=== PATIENT | female | born 2000 | race Caucasian/White ===

== ENCOUNTER 2019-05-14 20:06 | Emergency (ER) | payer BC ==
[~2019-05-14] VITALS: Ht 154.9 cm; Wt 49.9 kg
[2019-05-14] MEDS ORDERED: NKM (20:24)
--- NOTE | 2019-05-14 20:25 | NUR ---
ED Nurse Note: Pt walked in c/o foreign body object in throat, pt states she ate chicken for dinner and thinks there is chicken bone stuck in her throat, pt states it feels like it is going up from her chest to her throat. no visible object found, pt airway intact, able to speak in complete sentences, no sx resp distress, will cont monitor.
[2019-05-14] MEDS ORDERED: Metoclopramide 10mg/2ml Inj IVP ONE (20:30)
--- NOTE | 2019-05-14 20:56 | NUR ---
ED Nurse Note: PT BACK FROM CT AND RESTING, MOTHER AT THE BEDSIDE, PT REFUSED BLOOD WORK, IV FLUID AND MEDICATION, PT STATES SHE WANTS TO WAIT FOR CT RESULT, PT VERBALIZED UNDERSTANDING OF POSSIBLE DELAY OF PT'S HEALTHCARE PROCESS, ERMD NOTIFIED.
[2019-05-14 21:02] VITALS: BP 117/69
[2019-05-14] MEDS ORDERED: Dicyclomine HCl 10mg/5ml oral soln ORAL ONE (21:15)
[2019-05-14] MEDS ORDERED: Lidocaine 2% Visc 15ml soln ORAL ONE (21:15)
[2019-05-14] MEDS ORDERED: Mylanta II UD 30ml ORAL ONE (21:15)
[2019-05-14] MEDS ORDERED: MAALOX MAXIMUM355 M1 PO (21:31)
[2019-05-14 21:40] VITALS: BP 121/75
--- NOTE | 2019-05-14 21:40 | NUR ---
ED Nurse Note: pt cleared to be d/c per ERMD, pt discharge and aftercare instruction provided w/ prescription, pt education done via discussion and handout, pt advised to follow up with pcp or return to ed if changes in condition, vss, ambulatory w/ steady gait, accompanied by mother and left.
--- NOTE | 2019-05-15 09:44 | Diagnostic Imaging Report ---
Clinical Indication: Sensation of foreign body in throat/esophagus, status post eating check and Technique: Spiral acquisitions obtained through the chest. No IV contrast utilized, per referring physician request. Multiplanar reconstructions generated. Total dose length product 514 mGycm. CTDIvol(s) 16 mGy. Dose reduction achieved using automated exposure control Comparison: none Findings: The lungs are clear. No infiltrates, effusions, masses, or nodules are demonstrated. Normal heart size. No mediastinal or hilar mass or adenopathy. No evidence of radiopaque esophageal or airway foreign body. No pericardial effusion. No axillary or chest wall mass or adenopathy. The included upper abdominal anatomy is remarkable for a right adrenal calcification. The stomach is distended with food Impression: Essentially unremarkable exam. Incidental findings as noted This agrees with the preliminary interpretation provided overnight by Dr. Kaye The CT scanner at [facility] is accredited by the [employer] and the scans are performed using protocols designed to limit radiation exposure to as low as reasonably achievable to attain images of sufficient resolution adequate for diagnostic evaluation.
--- NOTE | 2019-05-15 10:50 | Diagnostic Imaging Report ---
Indication: Foreign body sensation in throat, status post eating chicken Technique: No IV contrast, per referring physician request Spiral acquisitions obtained through the neck. Multiplanar reconstructions were generated. Total dose length product 421.28 mGycm. CTDIvol(s) 15 mGy. Radiation dose was minimized using automated exposure control Comparison: none Findings: There is no evidence of esophageal, pharyngeal or hypopharyngeal foreign body. There is prominence to the adenoids. Otherwise normal nasopharynx, oropharynx, hypopharynx, larynx. The proximal trachea is unremarkable. No cervical mass or adenopathy demonstrated. The thyroid is unremarkable. The salivary glands are unremarkable. No prevertebral soft tissue swelling. Visualized orbits are unremarkable. The included intracranial structures are unremarkable. The bones demonstrate reversal of the normal cervical lordosis, otherwise unremarkable. Impression: Negative This agrees with the preliminary interpretation provided overnight by Dr. Kaye The CT scanner at [facility] is accredited by the [employer] and the scans are performed using protocols designed to limit radiation exposure to as low as reasonably achievable to attain images of sufficient resolution adequate for diagnostic evaluation.
--- NOTE | 2019-05-15 10:59 | Emergency Room Report ---
History of Present Illness General Chief Complaint: Foreign Body Source: Patient Present Illness HPI Patient presents with complaints of sensation of retained foreign body reports that yesterday she was eating chicken and felt that she swallowed a bone She felt the foreign body in the lower throat area As it persisted patient reports being seen at an urgent care x-ray imaging did not reveal any acute pathology however as she continued to be uncomfortable presents for further eval Patient reports that she has felt the sensation in the upper mid chest area and felt that the foreign body moved upward to the lower throat area Denies any vomiting denies any diarrhea denies any shortness of breath she feels increased discomfort with swallowing Allergies: Coded Allergies: PENICILLINS (Verified Allergy, Unknown, 05/14/19) Patient History Past Medical History: see triage record Pertinent Family History: none Last Menstrual Period: 04/26/19 Now: No Reviewed Nursing Documentation: PMH: Agreed; PSxH: Agreed Nursing Documentation-PMH Hx Cardiac Problems: Yes Review of Systems All Other Systems: negative except mentioned in HPI Physical Exam Vital Signs Date Time Temp Pulse Resp B/P (MAP) Pulse Ox O2 Delivery O2 Flow Rate FiO2 05/14/19 20:15 99.3 75 16 117/69 (85) 99 Room Air Sp02 EP Interpretation: reviewed, normal General Appearance: well appearing, no apparent distress - No obvious drooling Head: normocephalic, atraumatic Eyes: bilateral eye PERRL, bilateral eye EOMI ENT: hearing grossly normal, normal pharynx, TMs + canals normal, uvula midline Neck: full range of motion, supple, no meningismus, no bony tend Respiratory: lungs clear, normal breath sounds, no rhonchi, no respiratory distress, no retraction, no accessory muscle use Cardiovascular #1: normal peripheral pulses, regular rate, rhythm, no edema, no gallop, no JVD, no murmur Gastrointestinal: normal bowel sounds, non tender, soft, no mass, no organomegaly, non-distended, no guarding, no hernia, no pulsatile mass, no rebound Musculoskeletal: normal inspection Neurologic: oriented x3, responsive, recruitment assistant III-XII nml as tested, motor strength/ tone normal, sensory intact Psychiatric: mood/affect normal Skin: no rash Lymphatic: normal inspection, no adenopathy Medical Decision Making Diagnostic Impression: Primary Impression: Injury due to foreign body ER Course Given the history exam and presentation patient requested consultation with her GI specialist I did speak to the specialist and obtained Initial CAT scan imaging No obvious foreign body is seen in the neck or the chest area This was discussed with the patient and the GI specialist on phone I did discuss with the patient that the only way to make certain is to obtain upper endoscopy this is also confirmed by GI specialty Patient however does not feel that she wants to undergo this procedure at this time She was also concerned about a recent Travel upcoming in the morning At this time continues to swallow appropriately no obvious upper airway stridor and was disposition for close outpatient follow-up CT/MRI/US Diagnostic Results CT/MRI/US Diagnostic Results : Impression CT chestImpression: Essentially unremarkable exam. Incidental findings as noted CT neckImpression: Negative Last Vital Signs Date Time Temp Pulse Resp B/P (MAP) Pulse Ox O2 Delivery O2 Flow Rate FiO2 05/14/19 21:40 97.2 70 16 121/75 99 Room Air Status: improved Disposition: HOME, SELF-CARE Condition: Improved Scripts Mag Hydrox/Al Hydrox/Simeth (MAALOX MAXIMUM STRENGTH SUSP) 355 Ml Oral.susp 5 ML PO Q8HR for 5 Days, ML Prov: Lucas Dailey DO 05/14/19 Referrals: NON PHYSICIAN (PCP) Patient Instructions: Swallowed Foreign Body, Adult Additional Instructions: Patient is provided with the discharge instructions notified to follow up with primary doctor in the next 2-3 days otherwise return to the er with any worsening symptoms. Please note that this report is being documented using DRAGON technology. This can lead to erroneous entry secondary to incorrect interpretation by the dictating instrument. Lucas Dailey DO May 15, 2019 10:59
== END 2019-05-14 21:40 | disposition home or self-care (01) ==
LOC: EMR 20:53
DX: M79.5 Residual foreign body in soft tissue (principal); Z88.0 Allergy status to penicillin
CPT/HCPCS: 70490; 71250; 99284; J2765